=== PATIENT | male | born 1955 | race Hispanic/Latino ===

== ENCOUNTER → 2022-03-25 | Outpatient (CLI) | payer OTHER ==
[~2022-03-25] MED LIST: LIDOCAINE HCL 4% LTA SOL 4 ML VIAL ONE
== END | disposition home or self-care (01) ==
LOC: WHH 10:28
PROVIDERS: ATTEND Family Medicine
DX: L89.023 Pressure ulcer of left elbow, stage 3 (principal); L89.012 Pressure ulcer of right elbow, stage 2; R13.10 Dysphagia, unspecified; G23.1 Progressive supranuclear ophthalmoplegia [Steele-Richardson-Olszewski]; G80.8 Other cerebral palsy; Z79.899 Other long term (current) drug therapy
CPT/HCPCS: G0463; A6209; A4450

== ENCOUNTER → 2022-04-06 | Outpatient (CLI) | payer OTHER | END | disposition home or self-care (01) | LOC: WHH 09:59 | PROVIDERS: ATTEND Family Medicine | DX: L89.024 Pressure ulcer of left elbow, stage 4 (principal); L89.012 Pressure ulcer of right elbow, stage 2; R13.10 Dysphagia, unspecified; G23.1 Progressive supranuclear ophthalmoplegia [Steele-Richardson-Olszewski]; G80.8 Other cerebral palsy; Z79.899 Other long term (current) drug therapy | CPT/HCPCS: G0463; A6209 ==